=== PATIENT | male | born 2000 | race African-American/Black ===

== ENCOUNTER 2022-02-19 02:38 | Emergency (ER) | payer SELFPAY ==
[2022-02-19 02:40] VITALS: BP 143/95; PULSE 71; RESP 16; TEMP 36.3; O2SAT 99
[2022-02-19] MEDS: HYDROcodone/acetaminophen (*CRX) 5-325 MG TABLET 1 TAB PO (05:39)
--- NOTE | 2022-02-19 05:43 | ED.DENTAL ---
HPI - Dental/Oral General Chief complaint: Dental/Oral Stated complaint: dental pain Time Seen by Provider: 02/19/22 05:10 History of Present Illness HPI Narrative: Patient is a 21-year-old male who presents ER with dental pain. Mainly left lower jaw. Worsening over the last couple of days. Worse with eating and drinking. No swelling. Patient reports some chronic pain to his jaw related to the fact that he needs a couple of root canals in his lips and teeth have come and impacting his other teeth. He has dealt with that pain over the last year however this pain is new and different. No difficulty breathing or swallowing. He does have a dentist he can contact. Related Data Allergies Allergy/AdvReac Type Severity Reaction Status Date / Time No Known Allergies Allergy Verified 02/19/22 05:36 Review of Systems Constitutional: Constitutional: Denies chills and Denies fever(s) ENT: Denies dysphagia, Denies nasal congestion and Denies sore throat Comments: Dental pain PMFSH Past Medical History Medical History (Updated 02/19/22 @ 05:46 by Bret Leblanc MD) Healthy adult male Surgical History Surgical History (Updated 02/19/22 @ 05:44 by Bret Leblanc MD) No pertinent past surgical history Exam Narrative: GENERAL: Well-appearing, well-nourished, and in no acute distress. HEAD: Normocephalic, atraumatic. ENT: Mucous membranes moist. Tender palpation tooth #17 without any overt abscess or facial swelling. NECK: Supple. CHEST: Clear to auscultation. No respiratory distress. HEART: Regular rate and rhythm. Normal peripheral pulses. NEURO: Alert and oriented x3. PSYCH: Normal mood and affect. Course Course Emergency Course: Patient felt have early dental infection. Discharged with antibiotics and some pain control. Vital Signs Vital signs: Vital Signs Temperature 97.3 F L 02/19/22 02:40 Pulse Rate 71 02/19/22 02:40 Respiratory Rate 16 02/19/22 02:40 Blood Pressure 143/95 H 02/19/22 02:40 Pulse Oximetry 99 02/19/22 02:40 Oxygen Delivery Room Air 02/19/22 02:40 Temperature 97.3 F L 02/19/22 02:40 Pulse Rate 71 02/19/22 02:40 Respiratory Rate 16 02/19/22 02:40 Blood Pressure 143/95 H 02/19/22 02:40 Pulse Oximetry 99 02/19/22 02:40 Oxygen Delivery Room Air 02/19/22 02:40 Discharge Plan Discharge Clinical Impression: Toothache Patient Disposition: Home, Self-Care Condition: Stable Instructions: Antibiotic Form, Toothache (ED) Additional Instructions: Return the ER if you have inability swallow, you cannot keep down food or water, you lose consciousness, you have additional concerns. Take the antibiotics as prescribed and in their entirety. Prescriptions: New amoxicillin-pot clavulanate 875-125 mg tablet 1 tablet PO Q12H Qty: 10 0RF hydrocodone-acetaminophen 5-325 mg tablet 1 tablet PO Q6H PRN (Reason: pain) Qty: 10 0RF Follow-up/Referrals: PHYSICIAN,HANDLE AND VENT MACHINE OPERATOR [Primary Care Provider] -
[2022-02-19 06:06] VITALS: BP 127/84; PULSE 79; RESP 18; TEMP 36.8; O2SAT 99
== END 2022-02-19 06:09 | disposition home or self-care (01) ==
PROVIDERS: Emergency Provider Emergency Medicine
DX: K08.89 Other specified disorders of teeth and supporting structures (principal)
CPT/HCPCS: 99283; A9270

== ENCOUNTER 2023-02-27 18:54 | Emergency (ER) | payer OTHER, SELFPAY ==
[2023-02-27 19:07] VITALS: BP 141/81; PULSE 73; RESP 16; TEMP 37.4; O2SAT 99
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
== END 2023-02-27 19:43 | disposition home or self-care (01) ==
PROVIDERS: Emergency Provider Nurse Practitioner Family
DX: S00.81XA Abrasion of other part of head, initial encounter (principal); T14.8XXA Other injury of unspecified body region, initial encounter; V43.52XA Car driver injured in collision with other type car in traffic accident, initial encounter
CPT/HCPCS: 99213; G0463

== ENCOUNTER 2024-05-06 17:21 | Emergency (ER) | payer BC, SELFPAY ==
[2024-05-06 17:40] VITALS: BP 132/79; PULSE 96; RESP 16; TEMP 36.6; O2SAT 99
--- NOTE | 2024-05-06 17:43 | ED.MALEGU ---
HPI - Male Genitourinary General Chief complaint: Urogenital-Male Stated complaint: fatigued, slight fever/bodyaches Time Seen by Provider: 05/06/24 18:15 Source: patient, RN notes reviewed and old records reviewed Mode of arrival: ambulatory Limitations: no limitations History of Present Illness HPI Narrative: Patient presents with multiple concerns. He admits that over the weekend he drink more than usual and got dehydrated. States that while intoxicated, he did have unprotected sex. Since yesterday, he has been drinking Gatorade and body armor in an effort to flush his system. He states that he is more tired than normal and occasionally has a burning sensation with urination that he never had prior to the unprotected sexual encounter. He is requesting testing for COVID, flu, STIs Related Data Home Medications ?Medication ?Instructions ?Recorded ?Confirmed ?Last Taken ?Type No Home Medications 05/06/24 05/06/24 Unknown History Allergies Allergy/AdvReac Type Severity Reaction Status Date / Time No Known Allergies Allergy Verified 05/06/24 17:49 Review of Systems Review of Systems: All systems reviewed & are unremarkable except as noted in HPI and below Constitutional: Constitutional: Reports no additional constitutional complaints and Reports lethargy ENT: Reports system reviewed and no additional complaints, except as documented Cardiovascular: Cardiovascular: Reports no additional cardiovascular complaints Respiratory: Respiratory: Reports no additional respiratory complaints Gastrointestinal: Gastrointestinal: Reports no additional gastrointestinal complaints Genitourinary: Genitourinary: Reports dysuria (Occasional) PMFSH Past Medical History Medical History Healthy adult male Surgical History Surgical History No pertinent past surgical history Comments At the time of my signature, I reviewed and agree with the nursing past medical, surgical, social, and family history. There is no relevant family history pertinent to the patient complaint. Exam Const: General: cooperative, no acute distress, alert and awake Orientation/consciousness: oriented to person, oriented to place and oriented to time HENMT: Head: normal to inspection Resp: Effort & Inspection: normal respiratory effort and able to speak in complete sentences Auscultation: clear to auscultation bilaterally, no crackles, no rales, no rhonchi and no wheezes Cardio: Palpation: normal PMI Rate: regular rate Rhythm: regular rhythm Heart sounds: S1 normal heart sound present and S2 normal heart sound present Neuro: General: oriented to person, oriented to place and oriented to time Cranial nerves: Yes CN's II-XII intact bilaterally Psych: Appearance: grossly normal Thought process: Normal thought process present Insight: Good insight present (Psych) Judgement: Good judgement present (Psych) Course Course Level of Care: Express Care Visit Vital Signs Vital signs: Vital Signs Temperature 97.9 F 05/06/24 17:40 Pulse Rate 96 05/06/24 17:40 Respiratory Rate 16 05/06/24 17:40 Blood Pressure 132/79 05/06/24 17:40 Pulse Oximetry 99 05/06/24 17:40 Oxygen Delivery Room Air 05/06/24 17:40 Temperature 97.9 F 05/06/24 17:40 Pulse Rate 96 05/06/24 17:40 Respiratory Rate 16 05/06/24 17:40 Blood Pressure 132/79 05/06/24 17:40 Pulse Oximetry 99 05/06/24 17:40 Oxygen Delivery Room Air 05/06/24 17:40 Reviewed MDM - Male Genitourinary MDM Narrative Medical decision making narrative: Reassuring physical exam, negative COVID, negative flu, STI panel pending. Suspect symptoms were secondary to alcohol consumption. Discharge instructions reviewed with patient, as well as provided in writing per nursing staff. The instructions also include specific and strict return/GO TO THE ER as well as f/u information. All questions have been answered, and the patient deny any further questions with discharge and discharge plan. Some parts of this dictation were generated by voice recognition software and may contain typographical and/or grammatical inaccuracies. Differential Diagnosis Differential diagnosis: Likely urinary tract infection and other (Alcohol intoxication) Medical Records Attestation: I reviewed the patient's medical records. Lab Data Attestation: I reviewed the patient's lab results. Discharge Plan Discharge Clinical Impression: Dysuria Patient Disposition: Home, Self-Care Condition: Stable Instructions: Antibiotic Form, Safe Sex Practices (ED) Additional Instructions: Your urine sample will be sent to the lab. You will receive a phone call if there are any positive results. It is recommended that she to go to your primary or the health department to have a full STI panel run. What has been done today is limited Patient Language: Bulgarian Prescriptions: No Action cyclobenzaprine 10 mg tablet 10 mg PO TID PRN (Reason: muscle spasm) Qty: 20 0RF Follow-up/Referrals: PHYSICIAN,DIRECTOR OF ADULT EPILEPSY [Primary Care Provider] - Time of Disposition: 18:20
[2024-05-06 18:06] LABS: EDINFLUASCREEN Negative (Negative); EDINFLUBSCREEN Negative (Negative)
[2024-05-06 20:35] LABS: Trichomonas Vag PCR NOT DETECTED (NOT DETECTE)
[2024-05-06 20:59] LABS: Chlamydia trachomatis NOT DETECTED (NOT DETECTE); Neisseria gonorrhoeae PCR NOT DETECTED (NOT DETECTE)
== END 2024-05-06 18:25 | disposition home or self-care (01) ==
PROVIDERS: Emergency Provider Nurse Practitioner Family
DX: R30.0 Dysuria (principal); Z11.3 Encounter for screening for infections with a predominantly sexual mode of transmission
CPT/HCPCS: 87491; 87591; 87661; 87804; 99213; G0463

== ENCOUNTER 2024-05-08 16:37 | Emergency (ER) | payer BC, SELFPAY ==
[2024-05-08 16:51] VITALS: BP 146/88; PULSE 63; RESP 20; TEMP 36.9; O2SAT 100
[2024-05-08 17:01] LABS: EDUAAPPEAR Clear; EDUABILI Negative (Negative); EDUABLOOD Negative (Negative); EDUACOLOR1 Yellow; EDUAGLUCOSE Negative (Negative); EDUAKETONE Negative (Negative); EDUALEUKO Negative (Negative); EDUANITRATE Negative (Negative); EDUAPROTEIN Negative (Negative); EDUASPGRAVITY 1.015; EDUAUROBILI 0.2
--- NOTE | 2024-05-08 17:01 | ED.GENADULT ---
HPI - General Adult General Chief complaint: Urogenital-Male Stated complaint: UTI Time Seen by Provider: 05/08/24 17:20 Source: patient, RN notes reviewed and old records reviewed Mode of arrival: ambulatory Limitations: no limitations History of Present Illness HPI narrative: 23-year-old male presents to the [facility] wanting to be tested for a UTI. Patient reports that he still having his suprapubic lower pressure. States that the pressure is sometimes relieved when he urinates. Denies any excessive caffeine intake. Patient states that started on Sunday, was evaluated on Sunday, tested for STIs. Everything was negative. Patient denies any testicular pain or tenderness. Denies any rashes. Patient is concerned could see did have unprotected sex over the weekend. Onset (ago): day(s) (3) Related Data Home Medications ?Medication ?Instructions ?Recorded ?Confirmed ?Last Taken ?Type No Home Medications 05/06/24 05/06/24 Unknown History Allergies Allergy/AdvReac Type Severity Reaction Status Date / Time No Known Allergies Allergy Verified 05/08/24 16:48 Review of Systems Review of Systems: All systems reviewed & are unremarkable except as noted in HPI and below Constitutional: Constitutional: Reports no additional constitutional complaints ENT: Reports system reviewed and no additional complaints, except as documented Cardiovascular: Cardiovascular: Reports no additional cardiovascular complaints, Denies chest pain and Denies dyspnea Respiratory: Respiratory: Reports no additional respiratory complaints, Denies chest congestion, Denies cough and Denies dyspnea Genitourinary: Genitourinary: Reports as per HPI Musculoskeletal: Musculoskeletal: Reports no additional musculoskeletal complaints Integumentary/Breasts: Skin/Breast: Reports system reviewed and no additional complaints, except as docu PMFSH Past Medical History Medical History Healthy adult male Surgical History Surgical History No pertinent past surgical history Comments At the time of my signature, I reviewed and agree with the nursing past medical, surgical, social, and family history. There is no relevant family history pertinent to the patient complaint. Exam Const: General: cooperative, healthy appearing, comfortable, no acute distress, well developed, alert and well nourished Nutritional Appearance: well nourished Orientation/consciousness: patient oriented x3 Limitations: no limitations HENMT: Head: normal to inspection Eyes: General: appearance normal, both eyes and all related structures Alignment and Position: alignment normal Neck: Neck: normal visual inspection, full ROM, no lymphadenopathy and no meningeal signs Chest: Chest palpation & inspection: normal inspection of the chest Resp: Effort & Inspection: normal respiratory effort and able to speak in complete sentences Auscultation: clear to auscultation bilaterally, no crackles, no rales, no rhonchi and no wheezes Cardio: Rate: regular rate GI: GI Palp: No abdominal tenderness : General: Yes no CVA tenderness Skin: General skin exam: normal color and no rashes or lesions noted Neuro: General: patient oriented x3, gait normal, moves all extremities and no meningeal signs Cognition (Neuro): normal cognition Speech: normal speech Gait exam (Neuro): Normal gait present Extrem: General: normal to inspection, full ROM, capillary refill normal and normal gait Psych: Appearance: grossly normal and well kempt Mental Status: mental status grossly normal Speech and movement: Normal speech and movement present and Clear speech present Affect: normal affect Attitude: cooperative Course Course Level of Care: Express Care Visit Vital Signs Vital signs: Vital Signs Temperature 98.4 F 05/08/24 16:51 Pulse Rate 63 05/08/24 16:51 Respiratory Rate 20 05/08/24 16:51 Blood Pressure 146/88 H 05/08/24 16:51 Pulse Oximetry 100 05/08/24 16:51 Oxygen Delivery Room Air 05/08/24 16:51 Temperature 98.4 F 05/08/24 16:51 Pulse Rate 63 05/08/24 16:51 Respiratory Rate 20 05/08/24 16:51 Blood Pressure 146/88 H 05/08/24 16:51 Pulse Oximetry 100 05/08/24 16:51 Oxygen Delivery Room Air 05/08/24 16:51 Reviewed Medical Decision Making MDM Narrative Medical decision making narrative: Patient sitting comfortably in exam room. Nontoxic, vitals stable. Patient in no acute distress Patient presents for continued suprapubic pressure. Patient's urine dip is negative. Patient's previous report reviewed, negative for STIs Discussed signs and symptoms of proceed to the emergency room. Discussed the importance of following with primary care provider for further evaluation. Discharge instructions reviewed with patient, as well as provided in writing per nursing staff. The instructions also include specific and strict return/GO TO THE ER as well as f/u information. All questions have been answered, and the patient deny any further questions with discharge and discharge plan. Some parts of this dictation were generated by voice recognition software and may contain typographical and/or grammatical inaccuracies. Differential Diagnosis Differential Diagnosis: STI testicular swelling, appendicitis, cystitis, kidney stones Medical Records Medical records reviewed: Yes I reviewed the external patient's medical records. Vital Signs Vital Signs: Vital Signs Temperature 98.4 F 05/08/24 16:51 Pulse Rate 63 05/08/24 16:51 Respiratory Rate 20 05/08/24 16:51 Blood Pressure 146/88 H 05/08/24 16:51 Pulse Oximetry 100 05/08/24 16:51 Oxygen Delivery Room Air 05/08/24 16:51 Temperature 98.4 F 05/08/24 16:51 Pulse Rate 63 05/08/24 16:51 Respiratory Rate 20 05/08/24 16:51 Blood Pressure 146/88 H 05/08/24 16:51 Pulse Oximetry 100 05/08/24 16:51 Oxygen Delivery Room Air 05/08/24 16:51 Reviewed Lab Data Lab results reviewed: Yes I reviewed the patient's lab results. Labs: Lab Results 05/08/24 Range/Units 16:56 POC Urine Color Yellow POC Urine Clarity Clear POC Urine pH 6.0 POC Ur Specif [place] 1.015 POC Urine Protein Negative (Negative) POC Ur Glucose (UA) Negative (Negative) POC Urine Ketones Negative (Negative) POC Urine Blood Negative (Negative) POC Urine Nitrite Negative (Negative) POC Urine Bilirubin Negative (Negative) POC Urine Urobilinogen 0.2 POC U Leukocyte Esteras Negative (Negative) Reviewed Critical Care Time Critical Care Time Critical Care Time: No Discharge Plan Discharge Clinical Impression: Suprapubic pressure Patient Disposition: Home, Self-Care Condition: Stable Instructions: Abdominal Pain (ED) Additional Instructions: stay hydrated with plenty water, Gatorade, Pedialyte. Your urine did not show signs of infection follow-up with primary care provider for new or worsening symptoms go directly to the emergency room Patient Language: [place] Prescriptions: No Action No Home Medications Follow-up/Referrals: Chance Suarez MD [Physician] - PHYSICIAN,C[facility] MEDICAL AND LAB DIRECTOR [Primary Care Provider] - Stand Alone Forms: Work/School Release IP Time of Disposition: 17:34
== END 2024-05-08 17:40 | disposition home or self-care (01) ==
PROVIDERS: Emergency Provider Nurse Practitioner
DX: R10.30 Lower abdominal pain, unspecified (principal)
CPT/HCPCS: 81003; 99212; G0463

== ENCOUNTER 2024-06-23 16:15 | Emergency (ER) | payer BC, SELFPAY ==
--- NOTE | ~2024-06-23 | XR_ITS ---
XR hand RT min 3V Ordering provider: Kerline Sanchez APRN History: . fall pain . Comparison: None. FINDINGS: BONES: Fracture in the distal metaphysis of the right fifth metacarpal bone suggestive of boxer's fra cture. Displaced fragment is seen. JOINT SPACES: Normal. SOFT TISSUES: Normal. IMPRESSION: Boxer's fracture. Reviewed, dictated and finalized at location A. IMPRESSION: Boxer's fracture.
--- NOTE | 2024-06-23 16:20 | ED.UPPEXIN ---
HPI - Extremity Injury (Upper) General Chief Complaint: Extremity Injury, Upper Stated Complaint: Right Hand Pain Time Seen by Provider: 06/23/24 16:33 Source: patient, RN notes reviewed and old records reviewed Mode of arrival: ambulatory Limitations: no limitations History of Present Illness HPI narrative: 23-year-old male presents to the [facility] with complaints of right hand pain, states that he tripped and fell landing on his hand Pain to the 5th metacarpal, swelling is noted. Took some ibuprofen yesterday. States that he tripped on Sunday, 2 days ago Related Data Allergies Allergy/AdvReac Type Severity Reaction Status Date / Time No Known Allergies Allergy Verified 05/08/24 16:48 Review of Systems Review of Systems: All systems reviewed & are unremarkable except as noted in HPI and below Constitutional: Constitutional: Reports no additional constitutional complaints ENT: Reports system reviewed and no additional complaints, except as documented Cardiovascular: Cardiovascular: Reports no additional cardiovascular complaints, Denies chest pain and Denies dyspnea Respiratory: Respiratory: Reports no additional respiratory complaints, Denies chest congestion, Denies cough and Denies dyspnea Musculoskeletal: Musculoskeletal: Reports as per HPI Integumentary/Breasts: Skin/Breast: Reports system reviewed and no additional complaints, except as docu PMFSH Past Medical History Medical History Healthy adult male Surgical History Surgical History No pertinent past surgical history Comments At the time of my signature, I reviewed and agree with the nursing past medical, surgical, social, and family history. There is no relevant family history pertinent to the patient complaint. Exam Const: General: cooperative, healthy appearing, comfortable, no acute distress, well developed, alert and well nourished Nutritional Appearance: well nourished Orientation/consciousness: patient oriented x3 Limitations: no limitations HENMT: Head: normal to inspection Eyes: General: appearance normal, both eyes and all related structures Alignment and Position: alignment normal Neck: Neck: normal visual inspection, full ROM, no lymphadenopathy and no meningeal signs Chest: Chest palpation & inspection: normal inspection of the chest Resp: Effort & Inspection: normal respiratory effort and able to speak in complete sentences Auscultation: clear to auscultation bilaterally, no crackles, no rales, no rhonchi and no wheezes Cardio: Rate: regular rate Skin: General skin exam: normal color and no rashes or lesions noted Neuro: General: patient oriented x3, gait normal, moves all extremities and no meningeal signs Cognition (Neuro): normal cognition Speech: normal speech Gait exam (Neuro): Normal gait present Extrem: General: normal to inspection, full ROM, capillary refill normal and normal gait Right upper extremity: wrist normal to inspection and Extremity exam: right hand tenderness of the dorsal hand over the 5th metacarpal (Distal), vascular exam radial pulse present and normal capillary refill, abnormal ROM of finger pain with active ROM of the 5th digit and swelling of the dorsal hand over the 4th metacarpal and over the 5th metacarpal; no abrasions, no lacerations, no ecchymosis, no crepitus and no foreign bodies Psych: Appearance: grossly normal and well kempt Mental Status: mental status grossly normal Speech and movement: Normal speech and movement present and Clear speech present Affect: normal affect Attitude: cooperative Course Course Level of Care: Express Care Visit Vital Signs Vital signs: Vital Signs Temperature 97.6 F 06/23/24 16:32 Pulse Rate 70 06/23/24 16:32 Respiratory Rate 20 06/23/24 16:32 Blood Pressure 132/81 06/23/24 16:32 Pulse Oximetry 100 06/23/24 16:32 Oxygen Delivery Room Air 06/23/24 16:32 Temperature 97.6 F 06/23/24 16:32 Pulse Rate 70 06/23/24 16:32 Respiratory Rate 20 06/23/24 16:32 Blood Pressure 132/81 06/23/24 16:32 Pulse Oximetry 100 06/23/24 16:32 Oxygen Delivery Room Air 06/23/24 16:32 Reviewed MDM - Extremity Injury (Upper) MDM Narrative Medical decision making narrative: Patient sitting in exam room. Nontoxic, vitals stable. Patient in no acute distress. Patient has injury from 2 days ago. X-ray shows boxer fracture. Splint is placed by tech. Patient appropriate for outpatient treatment with close follow-up with primary care provider and orthopedic Discharge instructions reviewed with patient, as well as provided in writing per nursing staff. The instructions also include specific and strict return/GO TO THE ER as well as f/u information. All questions have been answered, and the patient deny any further questions with discharge and discharge plan. Some parts of this dictation were generated by voice recognition software and may contain typographical and/or grammatical inaccuracies. Differential Diagnosis Differential diagnosis: Likely sprain and strain of wrist and other (Hand contusion, hand fracture) Imaging Data Radiologist's impression: XR hand RT min 3V Ordering provider: Kerline Sanchez APRN History: . fall pain . Comparison: None. FINDINGS: BONES: Fracture in the distal metaphysis of the right fifth metacarpal bone suggestive of boxer's fracture. Displaced fragment is seen. JOINT SPACES: Normal. SOFT TISSUES: Normal. IMPRESSION: Boxer's fracture. Critical Care Time Critical Care Time Critical Care Time: No Discharge Plan Discharge Clinical Impression: Boxer's fracture Qualifiers: Encounter type: initial encounter Fracture type: closed Qualified Code(s): S62.339A - Displaced fracture of neck of unspecified metacarpal bone, initial encounter for closed fracture Patient Disposition: Home Condition: Stable Instructions: Boxer Fracture (ED) Additional Instructions: Rest, ice and elevate every 2-3 hours for 15-20 minutes while awake Wear the splint until cleared by Orthopedic Follow-up with primary as needed New or worsening symptoms go directly to emergency room Patient Language: Tajik Prescriptions: New ibuprofen 600 mg tablet 600 mg PO TID PRN (Reason: fever or pain) Qty: 30 0RF Follow-up/Referrals: Matthew Tsang MD [Primary Care Provider] - Jan Kogn MD [Physician] - 3 Days (Boxer fracture right ) Time of Disposition: 17:05
[2024-06-23 16:32] VITALS: BP 132/81; PULSE 70; RESP 20; TEMP 36.4; O2SAT 100
== END 2024-06-23 17:18 | disposition home or self-care (01) ==
PROVIDERS: Emergency Provider Nurse Practitioner; PCP Emergency Medicine
DX: S62.339A Displaced fracture of neck of unspecified metacarpal bone, initial encounter for closed fracture (principal); W19.XXXA Unspecified fall, initial encounter
CPT/HCPCS: 29126; 73130; 99214; A4565; G0463

== ENCOUNTER 2024-08-28 19:43 | Emergency (ER) | payer MEDICAID, SELFPAY ==
--- NOTE | 2024-08-28 19:47 | ED.EAR ---
HPI - Ear Problem General Chief complaint: Ear Stated complaint: Left Ear Irritation Time Seen by Provider: 08/28/24 19:45 Source: patient Mode of arrival: ambulatory Limitations: no limitations History of Present Illness HPI Narrative: Patient is a 23 year old male who presents to the clinic with complaints of left ear pain x 5 days. He has not been taking anything over the counter for pain. Denies any hearing loss, nausea, vomiting, diarrhea, or fevers. Related Data Allergies Allergy/AdvReac Type Severity Reaction Status Date / Time No Known Allergies Allergy Verified 08/28/24 19:50 Review of Systems Review of Systems: CONSTITUTIONAL: Denies malaise, chills, ?or fever. EYES: Denies visual changes, redness, or discharge. ENT: Denies rhinorrhea, congestion, sinus pain, and sore throat. ?Reports left ear pain. CARDIOVASCULAR: Denies chest pain, palpitations, or edema. RESPIRATORY: Denies cough or dyspnea. GASTROINTESTINAL: Denies abdominal pain, nausea, vomiting, diarrhea SKIN: Denies rash or itching. MUSCULOSKELETAL: Denies myalgia. NEUROLOGIC: Denies headache. All systems reviewed & are unremarkable except as noted in HPI and below PMFSH Past Medical History Medical History Healthy adult male Surgical History Surgical History No pertinent past surgical history Comments At time of signature, I have reviewed and agree with nursing past medical, surgical, social and family history unless otherwise noted. Please see nursing chart for further information. There is no relevant family history pertinent to the presenting complaint. Exam Narrative: GENERAL: Well-appearing, well-nourished, and in no acute distress. HEAD: Normocephalic EYES: PERRLA, conjunctivae clear ENT: Nares clear. Mucous membranes moist. ? Bilateral TM with normal light reflex; Left canal erythematous with no drainage, no tragal tenderness. Oropharynx not erythematous without lesions. ?no drooling, no hoarseness, no trismus, uvula midline. NECK: Supple. No lymphadenopathy CHEST: Clear to auscultation, breath sounds equal. No wheezing, rhonchi, rales, or stridor. No respiratory distress, speaks in full sentences. HEART: Regular rate and rhythm. No murmur heard. SKIN: Warm, dry, no rash. NEURO: Alert and oriented x3. PSYCH: Normal mood and affect. Course Course Level of Care: Express Care Visit Vital Signs Vital signs: Vital Signs Temperature 98.6 F 08/28/24 19:50 Pulse Rate 71 08/28/24 19:50 Respiratory Rate 16 08/28/24 19:50 Blood Pressure 137/82 08/28/24 19:50 Pulse Oximetry 97 08/28/24 19:50 Oxygen Delivery Room Air 08/28/24 19:50 Temperature 98.6 F 08/28/24 19:50 Pulse Rate 71 08/28/24 19:50 Respiratory Rate 16 08/28/24 19:50 Blood Pressure 137/82 08/28/24 19:50 Pulse Oximetry 97 08/28/24 19:50 Oxygen Delivery Room Air 08/28/24 19:50 Reviewed Medical Decision Making MDM Narrative Medical decision making narrative: Discussed physical exam findings. Ofloxacin prescription given. Advised supportive measures and signs/symptoms to go to the ER. Pt is appropriate for outpatient treatment and follow up. Differential Diagnosis Differential Diagnosis: otitis externa, TM rupture, foreign body, otitis media, seasonal allergies Vital Signs Vital Signs: Vital Signs Temperature 98.6 F 08/28/24 19:50 Pulse Rate 08/28/24 19:50 Respiratory Rate 16 08/28/24 19:50 Blood Pressure 137/82 08/28/24 19:50 Pulse Oximetry 97 08/28/24 19:50 Oxygen Delivery Room Air 08/28/24 19:50 Temperature 98.6 F 08/28/24 19:50 Pulse Rate 08/28/24 19:50 Respiratory Rate 16 08/28/24 19:50 Blood Pressure 137/82 08/28/24 19:50 Pulse Oximetry 97 08/28/24 19:50 Oxygen Delivery Room Air 08/28/24 19:50 Critical Care Time Critical Care Time Critical Care Time: No Discharge Plan Discharge Clinical Impression: Otitis externa Qualifiers: Otitis externa type: unspecified type Chronicity: acute Laterality: left Qualified Code(s): H60.502 - Unspecified acute noninfective otitis externa, left ear Patient Disposition: Home Condition: Stable Instructions: Ear Infection (AC) Additional Instructions: Swimmer's ear is an infection in the outer ear canal, which runs from your eardrum to the outside of your head. It's often caused by water that remains in your ear, creating a moist environment that encourages the growth of bacteria. Take antibiotic drops as directed. Tylenol every 8 hours as needed to reduce fever, pain Avoid water or anything into the ear for one week. Please follow up with your PCP or for any persistent or worsening symptoms go to ER immediately. Follow up with your personal physician for further evaluation and treatment within 3-5days. If your symptoms persist, change or worsen significantly, go to the emergency department for further evaluation. Patient Language: Congolese Prescriptions: New ofloxacin 0.3 % drops 10 drp EACH EAR DAILY 7 Days Qty: 10 0RF Follow-up/Referrals: PHYSICIAN,CONTINUOUS PILLOWCASE CUTTER [Primary Care Provider] - Time of Disposition: 19:55
[2024-08-28 19:50] VITALS: BP 137/82; PULSE 71; RESP 16; TEMP 37; O2SAT 97
== END 2024-08-28 19:58 | disposition home or self-care (01) ==
DX: H60.502 Unspecified acute noninfective otitis externa, left ear (principal)
CPT/HCPCS: 99213; G0463

== ENCOUNTER 2024-09-02 14:42 | Emergency (ER) | payer MEDICAID, SELFPAY ==
--- NOTE | ~2024-09-02 | XR_ITS ---
EXAMINATION: XR hand RT min 3V DATE: 09/02/2024 15:25 INDICATION: Right hand pain post injury TECHNIQUE: Posteroanterior, oblique and lateral views of the right hand were obtained. COMPARISON: None. FINDINGS: There is been interval healing of a mildly comminuted extra articular fracture at the neck of the fif th metacarpal which remains in near anatomic alignment with minimal palmar angulation. There is solid ly bridging callus formation along the palmar margin of the fracture. There is however still discerni ble lucency along the healing fracture planes. No acute appearing fracture plane or increasing displa cement to suggest acute reinjury. Remaining bones are unremarkable with no other fractures identified . Joint spaces are normal. Soft tissues are unremarkable. IMPRESSION: 1. Healing extra articular (boxer's) fracture at the distal neck of the right fifth metacarpal which remains in near anatomic alignment. No evident acute osseous abnormality. Reviewed, dictated and finalized at location A. IMPRESSION: 1. Healing extra articular (boxer's) fracture at the distal neck of the right f ifth metacarpal which remains in near anatomic alignment. No evident acute osse ous abnormality.
--- NOTE | 2024-09-02 14:43 | ED_ITS ---
HPI - Extremity Injury (Upper) General Chief Complaint: Extremity Injury, Upper Stated Complaint: Right Hand Pain Time Seen by Provider: 09/02/24 14:43 Source: patient Mode of arrival: ambulatory Limitations: no limitations History of Present Illness HPI narrative: Patient is a 23-year-old male who presents with right hand pain after hitting it on boxes at work 4-5 days ago. Patient is concerned he refractured hand. Previous fracture was 06/21 and was seen 06/23 with diagnosis of boxer fracture. Related Data Home Medications ?Medication ?Instructions ?Recorded ?Confirmed ?Last Taken ?Type No Home Medications 09/02/24 09/02/24 Unknown History Allergies Allergy/AdvReac Type Severity Reaction Status Date / Time No Known Allergies Allergy Verified 08/28/24 19:50 Review of Systems Review of Systems: All systems reviewed & are unremarkable except as noted in HPI and below Constitutional: Constitutional: Denies body ache(s), Denies chills, Denies fatigue, Denies fever(s), Denies headache(s), Denies malaise and Denies weakness Eyes: Eyes: Denies blurry vision, Denies irritation and Denies loss of vision ENT: Denies otalgia, Denies headache(s), Denies nasal discharge, Denies sinus pain and Denies sore throat Cardiovascular: Cardiovascular: Denies chest pain, Denies irregular heart rhythm and Denies dyspnea Respiratory: Respiratory: Denies dyspnea Gastrointestinal: Gastrointestinal: Denies abdominal pain, Denies melena, Denies hematochezia, Denies diarrhea, Denies nausea and Denies vomiting Musculoskeletal: Musculoskeletal: Denies back pain, Denies myalgias and Reports arthralgias Integumentary/Breasts: Skin/Breast: Denies pruritus and Denies rash Neurologic: Denies headache(s), Denies loss of vision and Denies weakness Psychiatric: Psychiatric: Reports no additional psychiatric complaints Endocrine: Endocrine: Denies fatigue PMFSH Past Medical History Medical History Healthy adult male Surgical History Surgical History No pertinent past surgical history Comments At time of signature, agree with nursing past medical, surgical, social and family history. There is no relevant family history pertinent to the presenting complaint. Exam Const: General: cooperative, healthy appearing, comfortable, no acute distress and well nourished Nutritional Appearance: well nourished Orientation/consciousness: patient oriented x3 Limitations: no limitations HENMT: Head: normal to inspection, normocephalic and atraumatic Ears: hearing grossly normal bilaterally and external ears normal Face/Nose/Sinus: Normal external nose present, normal facial exam and face symmetric Face and sinus: normal facial exam and face symmetric Mouth: Yes lip normal Eyes: General: appearance normal, both eyes and all related structures Alignment and Position: alignment normal and position normal Periorbital: periorbital findings normal Eyelids: eyelids normal Pupils: Equal, round and reactive pupils present EOM: EOMs intact bilaterally Neck: Neck: normal visual inspection, full ROM and supple Chest: Chest palpation & inspection: normal inspection of the chest Resp: Effort & Inspection: normal respiratory effort and able to speak in complete sentences Auscultation: clear to auscultation bilaterally Cardio: Rate: regular rate Rhythm: regular rhythm Heart sounds: S1 normal heart sound present and S2 normal heart sound present GI: Inspection: normal to inspection Skin: General skin exam: normal color and no rashes or lesions noted Neuro: General: patient oriented x3 and moves all extremities Cranial nerves: Yes Equal, round and reactive pupils present Speech: normal speech Gait exam (Neuro): Normal gait present Extrem: General: normal to inspection, full ROM and no edema Right upper extremity: wrist normal to inspection, normal ROM, normal vascular exam and radial pulse present; no tenderness and no ecchymosis and Extremity exam: right hand normal to inspection, normal capillary refill, neuromotor exam normal wrist extension normal, thumb opposition normal, thumb IP flexion normal, thumb ADduction normal and fingers 2-5 ABduction normal, neurosensory exam normal radial nerve sensory function normal, ulnar nerve sensory function normal, median nerve sensory function normal and digital nerve sensory function normal, tendon exam normal of all digits extensor tendon, flexor digitorum profundus and flexor digitorum superficialis, vascular exam radial pulse present and normal capillary refill, normal ROM of fingers and no swelling; no tenderness and no ecchymosis Psych: Appearance: grossly normal and well kempt Mental Status: mental status grossly normal Speech and movement: Normal speech and movement present Affect: normal affect Attitude: cooperative Thought process: Normal thought process present Course Course Emergency Course: Patient is aware of diagnosis, understands and agrees to treatment plan. Anticipatory guidance given. Patient agrees to follow-up as directed and is aware of reasons to seek care at the emergency department. Portions of this record may have been created with voice recognition software Level of Care: Express Care Visit Vital Signs Vital signs: Vital Signs Temperature 36.9 C 09/02/24 14:45 Pulse Rate 78 09/02/24 14:45 Respiratory Rate 18 09/02/24 14:45 Blood Pressure 128/83 09/02/24 14:45 Pulse Oximetry 98 09/02/24 14:45 Oxygen Delivery Room Air 09/02/24 14:45 Temperature 36.9 C 09/02/24 14:45 Pulse Rate 78 09/02/24 14:45 Respiratory Rate 18 09/02/24 14:45 Blood Pressure 128/83 09/02/24 14:45 Pulse Oximetry 98 09/02/24 14:45 Oxygen Delivery Room Air 09/02/24 14:45 Reviewed MDM - Extremity Injury (Upper) MDM Narrative Medical decision making narrative: Pt well hydrated appearing, in no respiratory distress, hemodynamically stable. Recommend supportive care. The patient is stable at time of discharge the clinical impression was discussed and the patient was given the opportunity to ask questions, which were addressed as completely as possible given the information available at present. Anticipatory guidance and return to care precautions were discussed and the importance of primary care follow-up was stressed and encouraged. The patient voiced understanding of the plan, indications to return, and the need for follow-up. Exam findings show no acute concerns or changes Patient is appropriate for outpatient treatment and follow-up. Differential Diagnosis Differential diagnosis: Likely sprain and strain of wrist, fracture of hand and other (HAnd sprain, wrist fracture) Medical Records Attestation: I reviewed the patient's medical records. Imaging Data Radiologist's impression: EXAMINATION: XR hand RT min 3V DATE: 09/02/2024 15:25 INDICATION: Right hand pain post injury TECHNIQUE: Posteroanterior, oblique and lateral views of the right hand were obtained. COMPARISON: None. FINDINGS: There is been interval healing of a mildly comminuted extra articular fracture at the neck of the fifth metacarpal which remains in near anatomic alignment with minimal palmar angulation. There is solidly bridging callus formation along the palmar margin of the fracture. There is however still discernible lucency along the healing fracture planes. No acute appearing fracture plane or increasing displacement to suggest acute reinjury. Remaining bones are unremarkable with no other fractures identified. Joint spaces are normal. Soft tissues are unremarkable. IMPRESSION: 1. Healing extra articular (boxer's) fracture at the distal neck of the right fifth metacarpal which remains in near anatomic alignment. No evident acute osseous abnormality. Discharge Plan Discharge Clinical Impression: Hand pain, right, Examination, follow up for fracture Patient Disposition: Home Condition: Stable Instructions: Hand Fracture (ED) Additional Instructions: For pain, you may take: Tylenol 650-1000mg by mouth every 4-6 hours. Do not exceed 4000mg in 24 hours. Advil (Ibuprofen) 600 mg by mouth every 6 hours. Do not exceed 2400mg in 24 hours. 8 AM: Tylenol 11 AM: Ibuprofen 2 PM: Tylenol 5 PM: Ibuprofen 8 PM: Tylenol 11 PM: Ibuprofen 2 AM: Tylenol 5 AM: Ibuprofen Follow up with Orthopedic Surgery in 1-2 weeks for further evaluation - please call for an appointment. Please go to ER immediately for increased pain, tingling/numbness, swelling, redness, and fever Patient Language: Vietnamese Prescriptions: No Action No Home Medications Follow-up/Referrals: Ifrah Espinal DO [Physician] - 3 Days PHYSICIAN,MARKETING AND OUTREACH COORDINATOR [Primary Care Provider] - Stand Alone Forms: Work/School Release IP Time of Disposition: 15:37
[2024-09-02 14:45] VITALS: BP 128/83; PULSE 78; RESP 18; TEMP 36.9; O2SAT 98
== END 2024-09-02 15:41 | disposition home or self-care (01) ==
PROVIDERS: Emergency Provider Nurse Practitioner Family
DX: M79.641 Pain in right hand (principal); Z09 Encounter for follow-up examination after completed treatment for conditions other than malignant neoplasm
CPT/HCPCS: 73130; 99213; G0463

== ENCOUNTER 2024-09-13 17:59 | Emergency (ER) | payer SELFPAY ==
--- NOTE | 2024-09-13 18:03 | ED_ITS ---
HPI - Skin/Abscess/Foreign Bdy General Chief complaint: Skin/Abscess/Foreign Body Stated complaint: Rash Time Seen by Provider: 09/13/24 18:03 Source: patient Mode of arrival: ambulatory Limitations: no limitations History of Present Illness HPI narrative: Patient reports insect bite to right side of back for approximately 5 days. Complaint of itching. Nontender. All systems reviewed and negative except as noted above. Related Data Allergies Allergy/AdvReac Type Severity Reaction Status Date / Time No Known Allergies Allergy Verified 09/13/24 18:06 Review of Systems Review of Systems: CONSTITUTIONAL: Denies fever, chills, or sweats. EYES: Denies visual changes, redness, or discharge. ENT: Denies rhinorrhea, congestion, sore throat, or otalgia. CARDIOVASCULAR: Denies chest pain, palpitations, or edema. RESPIRATORY: Denies cough or dyspnea. GASTROINTESTINAL: Denies abdominal pain, nausea, vomiting, or diarrhea. GENITOURINARY: Denies dysuria or hematuria. SKIN: Denies rash . Reports insect bite to right side of back with itching. MUSCULOSKELETAL: Denies back pain, joint pain, or myalgia. NEUROLOGIC: Denies headache, numbness, or weakness. PSYCHIATRIC: Denies anxiety or depression. All other systems reviewed are negative, except as documented in HPI. [facility] Past Medical History Medical History Healthy adult male Surgical History Surgical History No pertinent past surgical history Comments At time of signature, agree with nursing past medical, surgical, social and family history. There is no relevant family history pertinent to the presenting complaint. Exam Narrative: GENERAL: This is a well-nourished, well-developed patient, in no apparent distress. HEAD: normocephalic, atraumatic. EYES: PERRL. Sclera clear/white. Vision is grossly intact. EARS: External ears normal NOSE: External nose normal NECK: Neck supple, non-tender without lymphadenopathy, masses or thyromegaly. CARDIOVASCULAR: Regular rate and rhythm without murmurs, gallops, or rubs. RESPIRATORY: Clear to auscultation. Breath sounds equal bilaterally. No wheezes, rales, or rhonchi. SKIN: warm, Dry, intact with no suspicious lesions or rash, good texture and turgor. Erythematous scabbed insect bite to right side mid back with surrounding Erythematous fine papular approximately 6 x 8 cm. NEURO: awake, alert, and oriented to person, place and time. There were no obvious focal neurologic abnormalities. EXTREMITIES: No joint tenderness, effusion, or edema noted. Course Course Level of Care: Express Care Visit Vital Signs Vital signs: reviewed MDM - Skin/Abscess/Foreign Bdy MDM Narrative Medical decision making narrative: will treat with doxycycline, triamcinolone steroid cream. Recommend follow-up with primary care physician. Patient is well-appearing, nontoxic. Afebrile. Discharge Plan Discharge Clinical Impression: Insect bite of back Qualifiers: Encounter type: initial encounter Patient Disposition: Home Condition: Stable Instructions: Antibiotic Form, Insect Bite or Sting (ED) Additional Instructions: Take antibiotic as prescribed until gone. Apply steroid cream 2-3 times a day to affected area. see your primary care physician if not improving. Patient Language: Italian Prescriptions: New doxycycline hyclate 100 mg capsule 100 mg PO BID 7 Days Qty: 14 0RF triamcinolone acetonide 0.1 % cream 1 applic topical BID PRN (Reason: insect bite) Qty: 30 0RF Follow-up/Referrals: PHYSICIAN,[facility] [facility] [facility] [Primary Care Provider] - Time of Disposition: 18:11
[2024-09-13 18:06] VITALS: BP 145/80; PULSE 69; RESP 20; TEMP 36.9; O2SAT 97
== END 2024-09-13 18:15 | disposition home or self-care (01) ==
PROVIDERS: Emergency Provider Nurse Practitioner Family
DX: S20.461A Insect bite (nonvenomous) of right back wall of thorax, initial encounter (principal); W57.XXXA Bitten or stung by nonvenomous insect and other nonvenomous arthropods, initial encounter
CPT/HCPCS: 99213; G0463